=== PATIENT | female | born 1985 | race African-American/Black ===

== ENCOUNTER 2019-03-10 15:00 | Emergency (ER) | payer OTHER, MEDICAID ==
[~2019-03-10] VITALS: Ht 160 cm; Wt 73.0 kg
[2019-03-10 18:57] LABS: BASOPHILS % 0.5 % (0.0-2.0); HEMATOCRIT. 38.3 % (36.0-48.0); HEMOGLOBIN. 12.8 g/dL (12.0-16.0); LYMPHOCYTES % 24.8 % (20.0-50.0); MEAN CORPUSCULAR HEMOGLOBIN 25.1 pg (28.0-32.0); MEAN CORPUSCULAR VOLUME 75.2 fL (81.0-99.0); MEAN PLATELET VOLUME 7.6 fl (7.4-10.4); MONOCYTES % 6.6 % (2.0-8.0); NEUTROPHILS % 66.1 % (40.0-76.0); PLATELET 267 x1000/uL (130-400); RED CELL DISTRIBUTION WIDTH 16.6 % (11.6-14.6)
[2019-03-10 18:59] LABS: CLARITY URINE TURBID (CLEAR); COLOR URINE RED (YELLOW); KETONES URINE NEGATIVE (NEGATIVE); LEUKOCYTE ESTERASE URINE 2+ (NEGATIVE); NITRITE URINE NEGATIVE (NEGATIVE); OCCULT BLOOD URINE 3+ (NEGATIVE); PROTEIN URINE 2+ (NEGATIVE); SPECIFIC GRAVITY URINE 1.015 (1.005-1.030); UROBILINOGEN URINE 0.2 E.U./dL (0.2-1.0)
[2019-03-10] MEDS ORDERED: ONDANSETRON HCL 4MG/2ML INJ IV ONE (19:00)
[2019-03-10] MEDS ORDERED: KETOROLAC 30MG/ML VIAL IV ONE (19:00)
[2019-03-10 19:04] LABS: CHLORIDE 107 mEq/L (98-107)
[2019-03-10 19:12] LABS: B-HCG QUANTITATIVE < 1 mIU/mL (<3)
[2019-03-10] MEDS ORDERED: HALOPERIDOL LACTATE 5MG/ML VIAL IM ONE (20:00)
[2019-03-10 22:00] VITALS: BP 115/86
== END 2019-03-10 22:07 | disposition home or self-care (01) ==
LOC: ER 15:00
DX: N88.8 Other specified noninflammatory disorders of cervix uteri (principal); N39.0 Urinary tract infection, site not specified; N93.8 Other specified abnormal uterine and vaginal bleeding; I10 Essential (primary) hypertension; Z98.890 Other specified postprocedural states
CPT/HCPCS: 36415; 76830; 76856; 80053; 81003; 81025; 84702; 85025; 86850; 86900; 86901; 93005; 96374; 96375; 99284; J1885; J2405; Z7610